=== PATIENT | male | born 1960 | race Caucasian/White ===

== ENCOUNTER 2020-07-20 17:15 | Inpatient (IN) | payer MEDICARE ==
[~2020-07-20] VITALS: Ht 162.6 cm; Wt 77.3 kg
[2020-07-20 17:39] VITALS: Ht 162.6 cm; Wt 77.3 kg
[2020-07-20] MEDS ORDERED: LOSARTAN PO (17:41)
[2020-07-20] MEDS ORDERED: ADVAIR HFA 230-12 GM INH (17:43)
[2020-07-20 19:30] VITALS: BP 143/85
[2020-07-20 19:33] LABS: BASOPHILS 0.3 % (0-2); EOSINOPHILS 0.7 % (0-7); HEMATOCRIT 43.7 % (42.0-54.0); HEMOGLOBIN 14.1 g/dL (13.5-17.5); IMMATURE GRANULOCYTES 0.5 % (0-5); LYMPHOCYTES 12.3 % (15-50); MCH 30.6 pg (26.0-34.0); MCHC 32.3 g/dL (31.0-37.0); MCV 94.8 fL (80.0-100.0); MONOCYTES 7.6 % (2-11); NEUTROPHILS 78.6 % (40-80); PLATELET COUNT 304 10x3/uL (130-400); RBC 4.61 10x6/uL (4.20-6.10); WBC 19.3 10x3/uL (4.8-10.8)
--- NOTE | 2020-07-20 19:34 | NUR ---
PT REPORT CHERIE ESCOBEDO RN
[2020-07-20 19:38] LABS: CALC OSMOLALITY 266 mosm/kg (275-300); CALCIUM 8.9 mg/dL (8.5-10.1); CARBON DIOXIDE 30.6 mmol/L (21.0-32.0); CHLORIDE - SERUM 101 mmol/L (98-107); CREATININE - SERUM 0.8 mg/dL (0.6-1.3); GLUCOSE 97 mg/dL (74-106); POTASSIUM - SERUM 4.3 mmol/L (3.5-5.1); SODIUM 134 mmol/L (136-145); UREA NITROGEN 9 mg/dL (7-18); eGFR NON AFRICAN AMERICAN > 90 mL/min (90-120)
[2020-07-20 19:40] LABS: APTT 32.1 SECONDS (22.8-39.4); INR 0.96 (0.85-1.17); PROTIME 12.7 SECONDS (11.6-15.0)
[2020-07-20 19:55] LABS: ALKALINE PHOSPHATASE 86 U/L (30-120); ALT (SGPT) 44 U/L (10-68); BILIRUBIN - TOTAL 0.35 mg/dL (0.2-1.3); CKMB 1.7 U/L (0.0-3.6); CREATINE KINASE 83 UL (21-232); PRO BNP 190 pg/mL (0-125); PROTEIN - SERUM 7.8 g/dL (6.4-8.2)
[2020-07-20 19:57] LABS: TROPONIN-I < 0.017 ng/mL (0.000-0.060)
[2020-07-20 20:05] VITALS: BP 125/99
[2020-07-20 20:56] LABS: ERYTHROCYTE SEDIMENTATION RATE 70 mm/hr (0-20)
[2020-07-20 21:32] VITALS: BP 139/88
[2020-07-20] MEDS ORDERED: MIRAPEX0.25 MG PO (21:32)
[2020-07-20 22:38] VITALS: BP 115/55
--- NOTE | 2020-07-20 23:02 | NUR ---
COVID SWAB COMPLETED AND SENT TO LAB
[2020-07-21] VITALS (7 sets, daily range): BP systolic 106–138; BP diastolic 59–95
[2020-07-21 05:59] LABS: APTT 31.9 SECONDS (22.8-39.4); INR 0.97 (0.85-1.17); PROTIME 12.8 SECONDS (11.6-15.0)
[2020-07-21 06:07] LABS: BASOPHILS 0.1 % (0-2); EOSINOPHILS 0 % (0-7); HEMATOCRIT 45.5 % (42.0-54.0); HEMOGLOBIN 14.7 g/dL (13.5-17.5); IMMATURE GRANULOCYTES 0.5 % (0-5); LYMPHOCYTES 6.9 % (15-50); MCH 30.6 pg (26.0-34.0); MCHC 32.3 g/dL (31.0-37.0); MCV 94.6 fL (80.0-100.0); MEAN PLATELET VOLUME 10.3 fL (7.4-10.4); MONOCYTES 0.7 % (2-11); NEUTROPHILS 91.8 % (40-80); PLATELET COUNT 328 10x3/uL (130-400); RBC 4.81 10x6/uL (4.20-6.10); RDW 12.9 % (11.5-14.5); WBC 14.6 10x3/uL (4.8-10.8)
[2020-07-21 06:33] LABS: ALKALINE PHOSPHATASE 88 U/L (30-120); ALT (SGPT) 45 U/L (10-68); BILIRUBIN - TOTAL 0.27 mg/dL (0.2-1.3); C-REACTIVE PROTEIN 14.7 mg/dL (0.0-0.9); CALCIUM 9.3 mg/dL (8.5-10.1); CHLORIDE - SERUM 100 mmol/L (98-107); CREATINE KINASE 77 UL (21-232); CREATININE - SERUM 0.7 mg/dL (0.6-1.3); FERRITIN 379 ng/mL (3-244); GLUCOSE 142 mg/dL (74-106); MAGNESIUM - SERUM 2.1 mg/dL (1.8-2.4); PHOSPHOROUS 4.2 mg/dL (2.5-4.9); PRO BNP 167 pg/mL (0-125); PROTEIN - SERUM 7.5 g/dL (6.4-8.2); SODIUM 135 mmol/L (136-145); TROPONIN-I < 0.017 ng/mL (0.000-0.060); eGFR NON AFRICAN AMERICAN > 90 mL/min (90-120)
[2020-07-21 06:42] LABS: UREA NITROGEN 12 mg/dL (7-18)
[2020-07-21 06:43] LABS: CALC OSMOLALITY 271 mosm/kg (275-300); POTASSIUM - SERUM 5.1 mmol/L (3.5-5.1)
[2020-07-21 09:30] LABS: BILIRUBIN NEGATIVE (NEGATIVE); KETONE NEGATIVE (NEGATIVE); NITRITE NEGATIVE (NEGATIVE); UROBILINOGEN 4 mg/dL (< 2)
[2020-07-21 09:31] LABS: BACTERIA NONE SEEN HPF (NONE SEEN); EPITHELIAL CELLS RARE /hpf (0-5); WHITE CELLS - URINE NSEEN HPF (0-1)
--- NOTE | 2020-07-21 11:00 | NUR ---
RECEIVED BEDSIDE REPORT FROM HORACE STREETER
--- NOTE | 2020-07-21 11:42 | NUR ---
MEAL TRAY GIVEN TO PT
--- NOTE | 2020-07-21 12:00 | NUR ---
WAS TOLD BY PT TO CLEAN THE ROOM, EMPTY TRASH, AND TAKE LINENS ON 2 OCCASIONS. REFUSED TO WEAR OXYGEN, MASK AND PULSE OX.
--- NOTE | 2020-07-21 12:14 | NUR ---
AZITHROMYCIN INFUSION COMPLETE
--- NOTE | 2020-07-21 15:04 | NUR ---
PT REFUSES TO WEAR OXYGEN
[2020-07-21] MEDS ORDERED: COZAAR50 MG PO (17:54)
--- NOTE | 2020-07-21 19:15 | NUR ---
PT WANTING TO LEAVE AMA. HAS DRESSED AND IS INFORMING THIS NURSE OF HIS INTENTIONS. HAVE CALLED FOR BERE GAYTAN AND SENIOR RECEPTIONIST
--- NOTE | 2020-07-21 19:20 | NUR ---
ATTEMPTED TO CALL CRM MARKETING SPECIALIST X 3 TO DISCUSS PT WANTING TO LEAVE AMA.
--- NOTE | 2020-07-21 19:30 | NUR ---
DC'D IV CATHETER. CATHETER INTACT. APPLIED PRESSURE WITH 2X2 GAUZE AND TAPE.
--- NOTE | 2020-07-21 19:30 | NUR ---
CHARGE NURSE ALICE Bedolla RN SPOKE TO THE PT AND TALKED WITH HIM CONCERNING HIS DX AND HIS NEED FOR MORE HEALTHCARE. PT VOICED HE WANTED TO LEAVE AND "GO TO HIS FRIEND'S HOUSE".
--- NOTE | 2020-07-21 19:48 | NUR ---
DR CALDWELL NOTIFIED OF PT LEAVING AMA
== END 2020-07-21 20:00 | disposition left against medical advice (07) | DRG 190 ==
LOC: D.ER 17:15 → D.EDHOLD 21:11
PROVIDERS: Emergency Medicine; Family Medicine; ADMIT Family Medicine; ATTEND Family Medicine
DX: J44.0 Chronic obstructive pulmonary disease with (acute) lower respiratory infection (principal); J18.9 Pneumonia, unspecified organism; I10 Essential (primary) hypertension; F41.9 Anxiety disorder, unspecified; M19.90 Unspecified osteoarthritis, unspecified site